=== PATIENT | female | born 1935 | race African-American/Black ===

== ENCOUNTER 2018-11-14 00:12 | Emergency (ER) | payer OTHER ==
[~2018-11-14] VITALS: Ht 170.2 cm; Wt 100.0 kg
[2018-11-14] MEDS ORDERED: FUROSEMIDE 40MG/4ML VIAL IV ONE (01:45)
[2018-11-14 03:01] LABS: BASOPHILS % 0.5 % (0.0-2.0); EOSINOPHILS % 0.5 % (0.0-5.0); HEMATOCRIT. 22.1 % (36.0-48.0); MEAN CORPUSCULAR HEMOGLOBIN 29.8 pg (28.0-32.0); MEAN CORPUSCULAR VOLUME 95.1 fL (81.0-99.0); MONOCYTES % 8.9 % (2.0-8.0); NEUTROPHILS % 77.1 % (40.0-76.0); PLATELET 273 x1000/uL (130-400); RED BLOOD CELL COUNT 2.32 mill/uL (4.2-5.4); RED CELL DISTRIBUTION WIDTH 17.2 % (11.6-14.6)
[2018-11-14 03:02] LABS: CHLORIDE 101 mEq/L (98-107)
[2018-11-14 03:04] LABS: HEMOGLOBIN. 6.9 g/dL (12.0-16.0)
[2018-11-14] MEDS ORDERED: PANTOPRAZOLE SODIUM 40 MG/VIAL IV ONE (04:45)
[2018-11-14 04:56] LABS: PARTIAL THROMBOPLASTIN TIME 40.2 sec (23.4-31.0); PROTHROMBIN TIME 74.9 sec (9.1-11.1)
[2018-11-14 05:18] LABS: INR 7.7
[2018-11-14] MEDS ORDERED: PHYTONADIONE 10 MG/10 ML ORALSYR PO ONE (05:45)
[2018-11-14 06:45] VITALS: BP 107/75
== END 2018-11-14 07:05 | disposition short-term general hospital (02) ==
LOC: ER 00:30 → CANBEDREQ 09:01
DX: K92.2 Gastrointestinal hemorrhage, unspecified (principal); I11.0 Hypertensive heart disease with heart failure; I50.9 Heart failure, unspecified; D64.9 Anemia, unspecified; E87.70 Fluid overload, unspecified
CPT/HCPCS: 36415; 71045; 80053; 83880; 84484; 85025; 85610; 85730; 93005; 96374; 96375; 99285; C9113; J1940; J3430